=== PATIENT | female | born 1965 | race Caucasian/White ===

== ENCOUNTER → 2021-04-12 | Outpatient (CLI) | payer OTHER ==
[~2021-04-12] MED LIST: ALPRAZOLAM1 MG PO; BENZONATATE100 MG PO; CLARITIN 10MG T10 MG PO; DULOXETINE HCL30 MG PO; ELAVIL 50 MG TA50 MG PO; EMGALITY120 MG/1 M SQ; GABAPENTIN600 MG PO; HYDROXYZINE HCL25 MG PO; IBUPROFEN800 MG PO; INDERAL LA CAP160 MG PO; K-DUR TAB 10 M10 MEQ PO; LASIX20 MG PO; LITHIUM CARBON300 M3 PO; LO-DOSE ASPIRIN81 MG PO; METFORMIN HCL1000 MG PO; OMEPRAZOLE20 MG PO; PHENERGAN 25 MG25 M1 PO; QUETIAPINE FUM400 MG PO; QVAR REDIHALE10.6 G1 INH; SIMVASTATIN20 MG PO; SUMATRIPTAN SU100 MG PO; VENTOLIN HFA 66.7 GM INH
== END ==
LOC: HEART 5 14:03
DX: R05 Cough (principal); R06.02 Shortness of breath
CPT/HCPCS: 94060; 94729

== ENCOUNTER → 2021-04-24 | Outpatient (CLI) | payer MEDICARE, OTHER ==
[2021-04-25 12:14] LABS: IMMUNOGLOBULIN A, QN, SERUM 651 mg/dL (87-352); IMMUNOGLOBULIN M, QN, SERUM 67 mg/dL (26-217)
[2021-04-25 16:12] LABS: IMMUNOGLOBULIN G, QN, SERUM 1186 mg/dL (586-1602)
== END ==
LOC: LAB 09:58
PROVIDERS: Internal Medicine Pulmonary Disease
DX: J47.9 Bronchiectasis, uncomplicated (principal)
CPT/HCPCS: 36415; 82784; 82787; 87070; 87205

== ENCOUNTER → 2021-05-08 | Outpatient (CLI) | payer MEDICARE, OTHER | LOC: KOH-I 04-24 09:00 | DX: J47.9 Bronchiectasis, uncomplicated (principal); J41.1 Mucopurulent chronic bronchitis; J98.11 Atelectasis | CPT/HCPCS: 71250 ==

== ENCOUNTER → 2021-06-16 | Day surgery (SDC) | payer MEDICARE, OTHER | END | disposition home or self-care (01) | LOC: OR 06:40 | DX: J41.1 Mucopurulent chronic bronchitis (principal); R06.02 Shortness of breath; F41.9 Anxiety disorder, unspecified; J47.9 Bronchiectasis, uncomplicated; E11.42 Type 2 diabetes mellitus with diabetic polyneuropathy; G43.109 Migraine with aura, not intractable, without status migrainosus; E78.5 Hyperlipidemia, unspecified; I10 Essential (primary) hypertension; E66.9 Obesity, unspecified; Z88.8 Allergy status to other drugs, medicaments and biological substances; G47.30 Sleep apnea, unspecified; K21.9 Gastro-esophageal reflux disease without esophagitis; E66.01 Morbid (severe) obesity due to excess calories; E11.9 Type 2 diabetes mellitus without complications; Z20.822 Contact with and (suspected) exposure to COVID-19 | CPT/HCPCS: 82962; 87015; 87070; 87077; 87116; 87186; 87205; 87206; J2704; J7120 ==